=== PATIENT | female | born 1990 | race American Indian/Alaskan Native ===

== ENCOUNTER 2019-08-14 10:48 | Emergency (ER) | payer SELFPAY ==
[2019-08-14 11:39] LABS: Basophils % (Auto) 0.6 % (0.0-1.8); Eosinophils # (Auto) 0.1 K/mm3 (0.0-0.4); Eosinophils % (Auto) 1.4 % (0.0-4.3); Hematocrit 38.7 % (30.3-42.9); Hemoglobin 12.6 gm/dl (10.1-14.3); Lymphocytes # (Auto) 1.5 K/mm3 (1.2-5.4); Lymphocytes % (Auto) 19.9 % (13.4-35.0); Mean Corpuscular HGB Conc 33 % (30-34); Mean Corpuscular Volume 78 fl (79-97); Monocytes # (Auto) 0.7 K/mm3 (0.0-0.8); Monocytes % (Auto) 8.8 % (0.0-7.3); Platelet Count 280 K/mm3 (140-440); Red Blood Count 4.97 M/mm3 (3.65-5.03); Red Cell Distribution Width 15.2 % (13.2-15.2)
[2019-08-14] MEDS ORDERED: TORADOL IV ONE (12:20)
[2019-08-14] MEDS ORDERED: PEPCID IV ONE (12:20)
[2019-08-14] MEDS ORDERED: NACL 0.9% 1000 ML 1,000 ML IV ONE (12:20)
[2019-08-14 12:24] LABS: HCG Qualitative,Urine Negative (Negative)
[2019-08-14 12:25] LABS: Alanine Aminotransferase 15 units/L (7-56); Albumin 4.2 g/dL (3.9-5); BUN/Creatinine Ratio 14; Blood Urea Nitrogen 10 mg/dL (7-17); Calcium 9.4 mg/dL (8.4-10.2); Hemolysis Index 1
[2019-08-14 12:35] LABS: Bacteria,Urine 1+ /HPF (Negative); Bilirubin,Urine NEG (Negative); Blood,Urine SM (Negative); Color,Urine Yellow (Yellow); Urobilinogen,Urine < 2.0 mg/dL (<2.0)
[2019-08-14] MEDS ORDERED: NACL 0.9% 1000 ML 1,000 ML ONE (13:13)
--- NOTE | 2019-08-14 13:35 | Emergency Department Report ---
ED Abdominal Pain HPI - General Chief Complaint: Abdominal Pain Stated Complaint: ABD/SIDE PAIN Time Seen by Provider: 08/14/19 11:47 Source: patient Mode of arrival: Wheelchair Limitations: No Limitations - History of Present Illness Initial Comments: Patient is a 29-year-old female with no prior medical history who presents to ED complaining of right upper quadrant pain for the past 3 days. Patient states the pain is localized to her right upper abdominal area and sometimes radiates to the side. Patient denies nausea or vomiting or diarrhea. She also denies fevers/chills/chest pain/shortness of breath. MD Complaint: abdominal pain Location: RUQ Radiation: R flank Migration to: no migration Severity scale (0 -10): 7 Quality: aching, sharp Consistency: intermittent Improves With: movement Associated Symptoms: denies: nausea, vomiting, diarrhea, fever, chills, constipation - Related Data Previous Rx's Medication Instructions Recorded Last Taken Type Dicyclomine [Bentyl] 10 mg PO TID #20 capsule 08/14/19 Unknown Rx Famotidine [Pepcid] 20 mg PO BID #20 tablet 08/14/19 Unknown Rx Nitrofurantoin [place]/M-Cryst 100 mg PO Q12HR #14 capsule 08/14/19 Unknown Rx [Macrobid CAP] Allergies Allergy/AdvReac Type Severity Reaction Status Date / Time No Known Allergies Allergy Verified 08/14/19 13:12 ED Review of Systems ROS: Stated complaint: ABD/SIDE PAIN Other details as noted in HPI Comment: All other systems reviewed and negative ED Past Medical Hx - Past Medical History Previous Medical History?: No - Surgical History Past Surgical History?: No - Social History Smoking Status: Never Smoker Substance Use Type: None - Medications Home Medications: Home Medications Medication Instructions Recorded Confirmed Last Taken Type Dicyclomine [Bentyl] 10 mg PO TID #20 capsule 08/14/19 Unknown Rx Famotidine [Pepcid] 20 mg PO BID #20 tablet 08/14/19 Unknown Rx Nitrofurantoin [place]/M-Cryst 100 mg PO Q12HR #14 capsule 08/14/19 Unknown Rx [Macrobid CAP] ED Physical Exam - General Limitations: No Limitations General appearance: alert, in no apparent distress - Head Head exam: Present: atraumatic, normocephalic - Eye Eye exam: Present: normal appearance - ENT ENT exam: Present: mucous membranes moist - Neck Neck exam: Present: normal inspection - Respiratory Respiratory exam: Present: normal lung sounds bilaterally. Absent: respiratory distress - Cardiovascular Cardiovascular Exam: Present: regular rate, normal rhythm. Absent: systolic murmur, diastolic murmur, rubs, gallop - GI/Abdominal GI/Abdominal exam: Present: soft, tenderness (mild tenderness to palpation to the right upper quadrant), normal bowel sounds. Absent: distended, guarding, rebound, rigid, organomegaly - Extremities Exam Extremities exam: Present: normal inspection - Back Exam Back exam: Present: normal inspection, full ROM. Absent: CVA tenderness (R), CVA tenderness (L) - Neurological Exam Neurological exam: Present: alert, oriented X3 - Psychiatric Psychiatric exam: Present: normal affect, normal mood - Skin Skin exam: Present: warm, dry, intact, normal color. Absent: rash ED Course Vital Signs 08/14/19 10:52 Temperature 98.1 F Pulse Rate 86 Respiratory 16 Rate Blood Pressure 138/83 O2 Sat by Pulse 99 Oximetry ED Medical Decision Making - Lab Data Result diagrams: 08/14/19 11:08 08/14/19 11:08 Laboratory Last Values WBC 7.6 K/mm3 (4.5-11.0) 08/14/19 11:08 RBC 4.97 M/mm3 (3.65-5.03) 08/14/19 11:08 Hgb 12.6 gm/dl (10.1-14.3) 08/14/19 11:08 Hct 38.7 % (30.3-42.9) 08/14/19 11:08 MCV 78 fl (79-97) L 08/14/19 11:08 MCH 25 pg (28-32) L 08/14/19 11:08 MCHC 33 % (30-34) 08/14/19 11:08 RDW 15.2 % (13.2-15.2) 08/14/19 11:08 Plt Count 280 K/mm3 (140-440) 08/14/19 11:08 Lymph % (Auto) 19.9 % (13.4-35.0) 08/14/19 11:08 [place] % (Auto) 8.8 % (0.0-7.3) H 08/14/19 11:08 Eos % (Auto) 1.4 % (0.0-4.3) 08/14/19 11:08 Baso % (Auto) 0.6 % (0.0-1.8) 08/14/19 11:08 Lymph # 1.5 K/mm3 (1.2-5.4) 08/14/19 11:08 [place] # 0.7 K/mm3 (0.0-0.8) 08/14/19 11:08 Eos # 0.1 K/mm3 (0.0-0.4) 08/14/19 11:08 Baso # 0.0 K/mm3 (0.0-0.1) 08/14/19 11:08 Seg Neutrophils % 69.3 % (40.0-70.0) 08/14/19 11:08 Seg Neutrophils # 5.2 K/mm3 (1.8-7.7) 08/14/19 11:08 Sodium 145 mmol/L (137-145) 08/14/19 11:08 Potassium 4.2 mmol/L (3.6-5.0) 08/14/19 11:08 Chloride 105.0 mmol/L (98-107) 08/14/19 11:08 Carbon Dioxide 24 mmol/L (22-30) 08/14/19 11:08 Anion Gap 20 mmol/L 08/14/19 11:08 BUN 10 mg/dL (7-17) 08/14/19 11:08 Creatinine 0.7 mg/dL (0.7-1.2) 08/14/19 11:08 Estimated GFR > 60 ml/min 08/14/19 11:08 BUN/Creatinine Ratio 14 % 08/14/19 11:08 Glucose 101 mg/dL (65-100) H 08/14/19 11:08 Calcium 9.4 mg/dL (8.4-10.2) 08/14/19 11:08 Total Bilirubin 0.20 mg/dL (0.1-1.2) 08/14/19 11:08 AST 12 units/L (5-40) 08/14/19 11:08 ALT 15 units/L (7-56) 08/14/19 11:08 Alkaline Phosphatase 127 units/L (35-129) 08/14/19 11:08 Total Protein 8.0 g/dL (6.3-8.2) 08/14/19 11:08 Albumin 4.2 g/dL (3.9-5) 08/14/19 11:08 Albumin/Globulin Ratio 1.1 % 08/14/19 11:08 Lipase 16 units/L (13-60) 08/14/19 11:08 Urine Color Yellow (Yellow) 08/14/19 11:48 Urine Turbidity Slightly-cloudy (Clear) 08/14/19 11:48 Urine pH 6.0 (5.0-7.0) 08/14/19 11:48 Ur Specific [place] 1.020 (1.003-1.030) 08/14/19 11:48 Urine Protein 30 mg/dl mg/dL (Negative) 08/14/19 11:48 Urine Glucose (UA) Neg mg/dL (Negative) 08/14/19 11:48 Urine Ketones Neg mg/dL (Negative) 08/14/19 11:48 Urine Blood Sm (Negative) 08/14/19 11:48 Urine Nitrite Neg (Negative) 08/14/19 11:48 Ur Reducing Substances Not Reportable 08/14/19 11:48 Urine Bilirubin Neg (Negative) 08/14/19 11:48 Urine Ictotest Not Reportable 08/14/19 11:48 Urine Urobilinogen < 2.0 mg/dL (<2.0) 08/14/19 11:48 Ur Leukocyte Esterase Mod (Negative) 08/14/19 11:48 Urine WBC (Auto) 15.0 /HPF (0.0-6.0) H 08/14/19 11:48 Urine RBC (Auto) 9.0 /HPF (0.0-6.0) 08/14/19 11:48 U Epithel Cells (Auto) 15.0 /HPF (0-13.0) H 08/14/19 11:48 Urine Bacteria (Auto) 1+ /HPF (Negative) 08/14/19 11:48 Urine HCG, Qual Negative (Negative) 08/14/19 11:48 - Medical Decision Making 29-year-old female presents with abdominal pain All labs within normal limits no signs of white count, liver functions are within normal limits. Patient received a liter of normal saline and medication while in the ED Urinalysis shows mild cystitis. Discussed findings with the patient. Discussed with patient to follow up with software educator. Vital signs are normal patient is not distress. . - Differential Diagnosis cholelithiasis, fatty liver, kidney stone, UTI, Critical care attestation.: If time is entered above; I have spent that time in minutes in the direct care of this critically ill patient, excluding procedure time. ED Disposition Clinical Impression: Abdominal pain, UTI (urinary tract infection) Disposition: TO HOME OR SELFCARE Is pt being admited?: No Does the pt Need Aspirin: No Condition: Stable Instructions: Abdominal Pain (ED), Biliary Colic (ED), Urinary Tract Infection in Women (ED) Additional Instructions: Make sure to follow up with the primary care physician as discussed. Take all your medications as you've been prescribed. If you have any worsening symptoms or develop new symptoms please return to ED immediately. Prescriptions: Dicyclomine [Bentyl] 10 mg PO TID #20 capsule Nitrofurantoin [place]/M-Cryst [Macrobid CAP] 100 mg PO Q12HR #14 capsule Famotidine [Pepcid] 20 mg PO BID #20 tablet Referrals: [facility] [Provider Group] - 3-5 Days [facility] [Provider Group] - 3-5 Days Forms: Accompanied Note, Work/School Release Form(ED) Time of Disposition: 14:50
[2019-08-14 15:35] VITALS: BP 165/82
== END 2019-08-14 15:39 | disposition home or self-care (01) ==
LOC: ED 10:48
DX: N39.0 Urinary tract infection, site not specified (principal); Z79.899 Other long term (current) drug therapy
CPT/HCPCS: 36415; 80053; 81001; 81025; 83690; 85025; 87086; 96374; 96375; 99283; J1885; J7030

== ENCOUNTER 2019-12-07 13:18 | Emergency (ER) | payer SELFPAY ==
[2019-12-07 13:55] VITALS: BP 138/82
--- NOTE | 2019-12-07 14:01 | Emergency Department Report ---
Chief Complaint: Urogenital-Female Stated Complaint: UTI - HPI History of Present Illness: 29 yo F presents to ED with UTI symptoms x 1 week. Pt reports urinary frequency. LMP Oct 22. Took home test that was negative. Denies fever, N/V, back pain, vag bleeding, vag discharge, abdominal pain. - ROS Review of Systems: Comment: All other systems reviewed and negative Constitutional: denies: chills, fever Gastrointestinal: denies abdominal pain, nausea, vomiting Genitourinary: reports urinary frequency, bladder pressure; denies dysuria, vag bleeding, vag discharge Musculoskeletal: denies back pain - Exam Vital Signs: Vital Signs 12/07/19 12/07/19 13:23 13:54 Temperature 97.8 F 97.8 F Pulse Rate 98 H 91 H Respiratory 16 16 Rate Blood Pressure 138/82 138/82 O2 Sat by Pulse 97 98 Oximetry Physical Exam: - General Limitations: No Limitations General appearance: alert, in no apparent distress - Head Head exam: Present: atraumatic, normocephalic - Eye Eye exam: Present: normal appearance, EOMI - ENT ENT exam: Present: mucous membranes moist - Neck Neck exam: Present: normal inspection - Respiratory Respiratory exam: Absent: respiratory distress - Cardiovascular Cardiovascular Exam: Present: regular rate, normal rhythm - GI/Abdominal GI/Abdominal exam: Present: soft. Absent: distended, tenderness - Back Back: Absent: CVA tenderness - Extremities Exam Extremities exam: Present: normal appearance - Neurological Exam Neurological exam: Present: alert, oriented X3 - Psychiatric Psychiatric exam: Present: normal affect, normal mood - Skin Skin exam: Present: warm, dry, intact, normal color MSE screening note: Focused history and physical exam performed. Due to findings the following was ordered: n/a 29 yo F with urinary symptoms, possible UTI. Pt has no abdominal or CVA tenderness on exam. She is tolerating PO. Vitals are normal. Pt does not have an emergent medical condition at this time. Outpt resources given, follow-up advised. Return precautions given. ED Medical Decision Making - Medical Decision Making 29 yo F with urinary symptoms, possible UTI. Pt has no abdominal or CVA tenderness on exam. She is tolerating PO. Vitals are normal. Pt does not have an emergent medical condition at this time. Outpt resources given, follow-up advised. Return precautions given. ED Disposition for MSE Clinical Impression: Urinary frequency Disposition: MED SCREENING EXAM-LEFT Is pt being admited?: No Condition: Stable Referrals: MITCHELL ZHANG MD [Staff Physician] - 3-5 Days [facility] [Provider Group] - 3-5 Days [facility] [Outside] - 3-5 Days Time of Disposition: 14:01
== END 2019-12-07 14:10 | disposition left against medical advice (07) ==
LOC: ED 13:18
DX: R35.0 Frequency of micturition (principal)
CPT/HCPCS: 99281